=== PATIENT | female | born 1945 | race Caucasian/White ===

== ENCOUNTER 2017-07-15 11:05 | Day surgery (SDC) | payer OTHER ==
[~2017-07-15] VITALS: Ht 157.5 cm; Wt 84.5 kg
--- NOTE | ~2017-07-15 | OP ---
PATIENT NAME: KEISHA MORRISON MEDICAL RECORD: [id number] :49 LOCATION:[facility] ADMISSION DATE: SURGEON: SHERMAN ONEILL DO DATE OF OPERATION: 07/15/2017 PROCEDURE: EGD with biopsies. INDICATIONS FOR PROCEDURE: Heartburn, nausea, epigastric abdominal pain, altered bowel function. SCOPE: Olympus video gastroscope. MEDICATIONS: Propofol 150 mg IV per anesthesia. ESTIMATED BLOOD LOSS: Minimal. COMPLICATIONS: None. FINDINGS: Informed consent was given. The patient was made comfortable with the above medication. After reaching an adequate level of sedation by slow IV push, the patient was placed in left side. The endoscope was then advanced under direct visualization through the mouth to the second portion of the duodenum. The upper, middle, and lower thirds of the esophagus appeared normal. At the GE junction, there was very mild evidence of LA class A reflux induced esophagitis without ulcers or erosions. The endoscope was advanced beyond the GE junction into the stomach and retroflexed to view the cardia and fundus, which appeared normal. Throughout the body and antrum of the stomach, there was a slightly atrophic and nodular appearance. Multiple cold forceps biopsies were taken to submit for histopathology and to rule out H pylori. The endoscope was advanced beyond the pylorus into the duodenum where the bulb and second portion of the duodenum appeared normal. Based on the loose stools the patient has been experiencing, random biopsies were taken from the duodenum to submit for histology. The endoscope was then withdrawn from the patient. The patient tolerated the procedure well and there were no complications. IMPRESSION: 1. Very mild LA class A reflux-induced esophagitis. 2. Atrophic and nodular mucosa in the stomach with biopsies pending. PLAN AND RECOMMENDATIONS: 1. Discharge home when recovery parameters are met. 2. Followup biopsy specimen results. 3. Continue current diet and medications. 4. Further treatment and workup will be provided if indicated once the biopsies return. The appearance is within the esophagus and stomach and small bowel appear within normal limits in light of the fact that the patient's symptoms have improved and resolved. If the biopsies are normal, I would not recommend changing any medications or adding any medications at this time. TRANSINT:[id number] Voice Confirmation ID: [id number] DOCUMENT ID: [id number] OPERATIVE REPORT [id number] KEISHA MORRISON SHERMAN ONEILL DO at 0739 CC: [id number] DICTATION DATE: 07/15/17 1425 [employer] SUPERVISOR: 07/15/17 1448 [facility] 07/15/17 [id number] [place] [address]
[~2017-07-15 11:05] MED LIST: AMBIEN10 MG PO; ASPIRIN325 MG PO; ASPIRIN81 MG; ASPIRIN81 MG PO; ATENOLOL25 MG; BENICAR20 MG PO; BIOTIN5 MG PO; BRILINTA90 MG PO; CELEXA40 MG PO; CINNAMON500 MG PO; CYMBALTA30 MG PO; EFFIENT10 MG PO; FISH OIL 1,0001 CA1 PO; FISH OIL 1,2001 CA1 PO; GARLIC1 CAP PO; GEMFIBROZIL600 MG PO; GLUCOPHAGE500 MG PO; HYDROCHLOROTHIA25 MG PO; IMDUR30 MG PO; ISOSORBIDE MONO30 M1 PO; LASIX40 MG PO; LORCET 10/650 T1 TAB PO; NAPROSYN250 MG PO; NIASPAN500 MG PO; PLAVIX75 MG PO; PRAVACHOL20 MG PO; TENORETIC 50 TA1 TAB PO; TOPROL XL100 MG PO; TOPROL XL50 MG; WELCHOL625 MG PO; ZESTRIL40 MG PO; ZOCOR80 MG PO
[2017-07-15] MEDS ORDERED: ZYLOPRIM300 MG PO (12:23)
[2017-07-15] MEDS ORDERED: MOBIC7.5 MG PO (12:26)
[2017-07-15] MEDS ORDERED: RESTORIL15 MG PO (12:29)
[2017-07-15] MEDS ORDERED: MEGA RED (12:31)
[2017-07-15] MEDS ORDERED: OMEPRAZOLE20 M1 PO (12:32)
[2017-07-15] MEDS ORDERED: EFFEXOR75 MG PO (12:33)
[2017-07-15 12:40] VITALS: Ht 157.5 cm; Wt 84.5 kg
[2017-07-15 13:42] LABS: HEMOGLOBIN 12.2 g/dL (12-16); MCV 90.9 fL (80.0-100.0); MEAN PLATELET VOLUME 9.9 fL (7.4-10.4); RBC 4.07 10x6/uL (4.00-5.40); RDW 13.5 % (11.5-14.5); WBC 9.9 10x3/uL (4.8-10.8)
[2017-07-15 14:13] LABS: ANION GAP 12.9 mmol/L (8-16); CALCIUM 8.2 mg/dL (8.5-10.1); CARBON DIOXIDE 27.5 mmol/L (21.0-32.0); POTASSIUM - SERUM 3.4 mmol/L (3.5-5.1)
== END 2017-07-15 15:15 | disposition home or self-care (01) ==
LOC: D.OPS 11:05
PROVIDERS: Internal Medicine Gastroenterology
DX: R10.13 Epigastric pain (principal); R11.0 Nausea; K21.0 Gastro-esophageal reflux disease with esophagitis; R19.4 Change in bowel habit; E11.9 Type 2 diabetes mellitus without complications; I50.9 Heart failure, unspecified; I25.10 Atherosclerotic heart disease of native coronary artery without angina pectoris; Z01.812 Encounter for preprocedural laboratory examination

== ENCOUNTER → 2018-08-21 10:29 | Outpatient (CLI) | payer OTHER ==
[2017-07-15 12:40] VITALS: BMI 34.1
[~2018-08-21 10:29] MED LIST changes: +EFFEXOR75 MG PO; +MEGA RED; +MOBIC7.5 MG PO; +OMEPRAZOLE20 M1 PO; +RESTORIL15 MG PO; +ZYLOPRIM300 MG PO
== END | disposition home or self-care (01) ==
LOC: D.US 10:29
PROVIDERS: ATTEND Family Medicine
DX: I73.9 Peripheral vascular disease, unspecified (principal)

== ENCOUNTER → 2018-08-27 08:41 | Outpatient (CLI) | payer OTHER ==
[2017-07-15 12:40] VITALS: BMI 34.1
[2018-08-27 09:23] LABS: CREATININE - SERUM 1.3 mg/dL (0.6-1.3)
== END | disposition home or self-care (01) ==
LOC: D.CT 08:41
PROVIDERS: ATTEND Family Medicine
DX: I73.9 Peripheral vascular disease, unspecified (principal)

== ENCOUNTER 2018-09-12 06:17 | Outpatient (CLI) | payer OTHER ==
[~2018-09-12] VITALS: Ht 157.5 cm; Wt 80.9 kg
--- NOTE | ~2018-09-12 | HEMODYNAMI ---
PATIENT:KEISHA MORRISON MEDICAL RECORD: [id number] : 49 LOCATION:[facility] ADMISSION DATE: 09/12/18 Generatedon:09/12/20188:58 Patient name: KEISHA MORRISON Patient #: [id number] SSN: : 1945 Date of study: 09/12/2018 Page: Of Hemodynamic Procedure Report Patient Data Patient Demographics Procedure consent was obtained First Name: KEISHA Gender: Female Last Name: PRINCE : 1945 [facility] Initial: TROY Age: 73 year(s) Patient #: [id number] Race: Additional ID: [id number] Contact details [address]: [address] [place] [address] State: [place] City: [place] Zip code: [address] Past Medical History History of disease Date Diagnosis Comments CAD Valvular heart disease Allergies Allergen Reaction Date Comments Reported Other allergy 10/03/2015 PLAVIX, EFFIENT Other allergy 09/12/2018 EFFIENT, PLAVIX, JANUVIA Admission Admission Data Admission Date: 09/12/2018 Admission Time: 6:17 Admit Source: Other Insurance Payor: Private health insurance Height (in.): 62 BSA: 1.82 (m2) Height (cm.): 157.48 BMI: 32.66 (kg/m2) Weight (lbs.): 178.58 Weight (kg.): 81 Lab Results Lab Result Date: 09/12/2018 Lab Result Time: 0:00 Biochemistry Name Units Result Min Max BUN mg/dl 40 --(----)-* 7 18 Creatinine mg/dl 1.4 --(----)*- 0.6 1.3 CBC Name Units Result Min Max Hemoglobin g/dl 12.8 -*(----)-- 13.5 17.5 Procedure Procedure Types Cath Procedure Peripheral Cath Diagnostic Procedure Janitorial Services Supervisor Peripheral Procedures Fhcej-Taenfnx-Zyc-Off Peripheral vascular Intervention Stent Stent-Fem/Popw/plasty Procedure Description Procedure Date Procedure Date: 09/12/2018 Procedure Start Time: 8:33 Procedure End Time: 8:55 Procedure Staff Name Function Jeffery Juarez MD Performing Physician Geno Coker RT Monitor Ami Tracey RT Scrub Lambert Nj RN Nurse Zachary Vergara RN Box Blank Machine Operator Procedure Data Cath Procedure Fluoroscopy Diagnostic fluoroscopy Total fluoroscopy Time: 4.8 time: 4.8 min min Diagnostic fluoroscopy Total fluoroscopy dose: 220 dose: 220 mGy mGy Contrast Material Contrast Material Type Amount (ml) Isovue 300 63 Entry Location Entry Primary Successful Side Size Upsize Upsize Entry Closure Succes sful Closure Location (Fr) 1 (Fr) 2 (Fr) Remarks Device Remarks Femoral Right 5 Fr 6 Fr 6 Fr Exoseal artery Long Short Estimated blood loss: 5 ml Diagnostic catheters Device Type Used For End Catheter Placement DIAGNOSTIC UF 5Fr Multi-vessel catheter ([id number]) Angiography Procedure Complications No complications Procedure Medications Medication Administration Route Dosage 0.9% NaCl I.V. 100 ml/hr Oxygen etCO2 Nasal cannula 2 l/min Heparin Flush Bag added to field 2 bags (1000units/500ml NS) Lidocaine 2% added to field 20 Zofran I.V. 4 mg Versed I.V. 1 mg Fentanyl I.V. 50 mcg Versed I.V. 1 mg Fentanyl I.V. 50 mcg Versed I.V. 2 mg Fentanyl I.V. 50 mcg Heparin Bolus I.V. 4000 units Integrilin (Bolus I.V. 7.3 ml 2mg/ml) Integrilin (Bolus wasted 2.7 ml 2mg/ml) Fentanyl I.V. 50 mcg Brilinta P.O. 180 mg Fentanyl I.V. 50 mcg Hemodynamics Rest BSA: 1.82 (m2) HGB: 12.8 (g/dl) O2 Consumption: Estimated: 158.8 (ml/min) O2 Con sumption indexed: Estimated:87.25 (ml/min/m) Heart Rate: 58 (bpm) Snapshots Pre Cath Intra NCS Post Cath Vital Signs Time Heart Resp SPO2 etCO2 NIBP (mmHg) Rhythm Pain Sedation Rate (ipm) (%) (mmHg) Status Level (bpm) 8:18:27 56 11 98 32.1 195/71(140) NSR 0 (11) 10(A) , No pain 8:23:01 53 12 98 34.3 168/64(125) NSR 0 (11) 10(A) , No pain 8:27:34 55 11 98 35.8 179/66(133) NSR 0 (11) 10(A) , No pain 8:32:04 60 14 97 26.8 161/63(127) NSR 0 (11) 10(A) , No pain 8:36:26 56 15 94 14.9 162/70(134) NSR 0 (11) 9(A) , No pain 8:40:56 56 19 95 27.6 142/63(116) NSR 0 (11) 9(A) , No pain 8:45:23 58 10 97 31.3 136/58(106) NSR 0 (11) 9(A) , No pain 8:49:45 58 16 97 32.1 140/61(102) NSR 0 (11) 10(A) , No pain 8:55:04 60 17 98 28.3 174/71(145) NSR 0 (11) 10(A) , No pain Medications Time Medication Route Dose Verified Delivered Reason Notes Effectiveness by by 8:17:06 0.9% NaCl I.V. 100 Lambert Lambert Per physician ml/hr Clem Nj RN RN 8:17:15 Oxygen etCO2 2 Lambert Lambert for low 02 sats Nasal l/min Clem Nj cannula RN RN 8:17:25 Heparin Flush added 2 Lambert Lambert used for Bag to bags Clme Nj procedure (1000units/500ml field ZAMORA RN NS) 8:17:40 Lidocaine 2% added 20ml Lambert Lambert for local to vial Clem Nj anesthetic field ZAMORA RN 8:17:57 Zofran I.V. 4 mg Lambert Lambert for nausea Clem Nj RN RN 8:25:45 Versed I.V. 1 mg Lambert Lambert for sedation Clem Nj RN RN 8:25:53 Fentanyl I.V. 50 Lambert Lambert for sedation mcg Clem Nj RN RN 8:27:53 Versed I.V. 1 mg Lambert Lambert for sedation Clem Nj RN RN 8:27:59 Fentanyl I.V. 50 Lambert Lambert for sedation mcg Clem Nj RN RN 8:33:47 Versed I.V. 2 mg Lambert Lambert for sedation Clem Nj RN RN 8:33:53 Fentanyl I.V. 50 Lambert Lambert for sedation mcg Clem Nj RN RN 8:42:02 Heparin Bolus I.V. 4000 Lambert Lambert for units Clem Nj anticoagulation RN RN 8:42:19 Integrilin I.V. 7.3 Lambert Lambert for (Bolus 2mg/ml) ml Clem Nj antiplatelet RN RN therapy 8:42:36 Integrilin wasted 2.7ml Lambert Lambert to sharp's (Bolus 2mg/ml) Clem Nj RN RN 8:44:38 Fentanyl I.V. 50 Lambert Lmabert for sedation mcg Clem Nj RN RN 8:54:08 Brilinta P.O. 180 Lambert Lambert for mg Clem Nj antiplatelet RN RN therapy 8:57:18 Fentanyl I.V. 50 Lambert Lambert for sedation mcg Clem Nj RN supervisor silvering department Log Time Note 7:49:42 Signed procedure consent form obtained from patient. 7:49:43 Diagnostic Cath status Elective 7:49:44 Time tracking: Regular hours (M-F 7:00 - 5:00) 7:49:48 Plan of Care:Hemodynamics will remain stable., Cardiac rhythm will remain stable., Comfort level will be maintained., Respiratory function will remain adequate., Patient/ family verbilizes understanding of procedure., Procedure tolerated without complication., Recovers from procedure without complications.. 7:49:58 H&P Date Dictated: 09/11/2018 Within 30 days and on chart., H&P Addendum completed by physician on day of procedure. (MUST COMPLETE FOR ALL OUTPATIENTS). 7:52:41 Patient allergic to Other allergyEFFIENT, PLAVIX, JANUVIA 7:55:29 Patient Weight : 178.58 lbs 7:57:45 Zachary Vergara RN sent for patient. Start room use. 8:05:27 Patient received from Pre/Post Procedure Room to CCL 2 Alert and oriented. Tansferred to table in Supine position. 8:05:30 Warm blankets applied, and pauline hugger turned on for patient comfort. 8:05:30 Correct patient and procedure confirmed by team. 8:05:31 ECG and BP/O2 sat monitors applied to patient. 8:15:54 Vital chart was started 8:15:55 Baseline sample Acquired. 8:16:00 Rhythm: sinus rhythm 8:16:02 Full Disclosure recording started 8:16:04 Pre-procedure instructions explained to patient. 8:16:04 Pre-op teaching completed and patient verbalized understanding. 8:16:05 Family in waiting room. 8:16:07 Patient NPO since Midnight. 8:16:09 Is the patient allergic to Iodine/contrast media? No. 8:16:10 Was the patient premedicated? No 8:16:18 Is patient on blood thinner?Yes 8:16:21 ACC The patient was administered the following blood thiners within the last 24 hours: ACCAspirin 8:16:23 Patient diabetic? No. 8:16:25 Previous problem with sedation/anesthesia? No ? 8:16:27 Snore? Yes 8:16:29 Sleep apnea? No 8:16:30 Deviated septum? No 8:16:34 Opens mouth fully? Yes 8:16:35 Sticks out tongue? Yes 8:16:37 Airway obstruction? No ? 8:16:43 Dentures? Yes lower in tight 8:17:06 0.9% NaCl 100 ml/hr I.V. was administered by Lambert Nj RN; Per physician; 8:17:15 Oxygen 2 l/min etCO2 Nasal cannula was administered by Lambert Nj RN; for low 02 sats; 8:17:25 Heparin Flush Bag (1000units/500ml NS) 2 bags added to field was administered by Lambert Nj RN; used for procedure; 8:17:40 Lidocaine 2% 20ml vial added to field was administered by Lambert Nj RN; for local anesthetic; 8:17:42 Pre procedure: left dorsailis pedis pulse 1+ Palpable, but thready & weak; easily obliterated 8:17:45 Pre procedure: right dorsailis pedis pulse Doppler 8:17:49 Patient pain scale 0/10 ?. 8:17:57 Zofran 4 mg I.V. was administered by Lambert Nj RN; for nausea; 8:18:09 IV patent on arrival in left forearm with 0.9% NaCl at [facility]. 8:18:35 Lab results completed and on chart. 8:18:45 Bilateral groins area was prepped with chlora-prep and draped in sterile fashion 8:: Lab Result : BUN 40 mg/dl 8:: Lab Result : Creatinine 1.4 mg/dl 8:: Lab Result : Hemoglobin 12.8 g/dl 8::48 Patient Height : 62 inches 8:20:48 Admit Source: Other 8::53 Insurance Payor : Private health insurance 8:21:13 Alarms reviewed by R. N. 8:: Sharps counted by scrub and verified by R.N. 8::48 Zero performed for pressure channel P1 8::44 Physician arrived 8::44 --------ALL STOP TIME OUT------ 8::45 Final Timeout: patient, procedure, and site verified with staff and physician. All members of the team are in agreement. 8:24:47 Bilateral groins site verified by team. 8::51 Maximum allowable Isovue 300 dose 300ml. Physician notified. (300ml for normal creatinines. For patients with creatinine of 1.7 or higher multiply weight(kg) x 5 divided by creatinine.) 8:24:55 Fire Safety Assessment: A--An alcohol-based skin anteseptic being used preoperatively., C--Open oxygen or nitrous oxide is being used., D--An ESU, laser, or fiber-optic light is being used. 8:24:59 Physical assessment completed. ASA score P 2 - A patient with mild systemic disease as per Jeffery Juarez MD. 8:25:02 Sedation plan: IV Moderate Sedation Medication:Versed, Fentanyl 8::45 Versed 1 mg I.V. was administered by Lambert Nj RN; for sedation; 8::53 Fentanyl 50 mcg I.V. was administered by Lambert Nj RN; for sedation; 8::53 Versed 1 mg I.V. was administered by Lambert Nj RN; for sedation; 8::59 Fentanyl 50 mcg I.V. was administered by Lambert Nj RN; for sedation; 8:32:24 Procedure started. 8:33:42 Local anesthetic to right femoral artery with Lidocaine 2% by Jeffery Juarez MD.INITIAL ACCESS ONLY 8:33:47 Versed 2 mg I.V. was administered by Lambert Nj RN; for sedation; 8:33:53 Fentanyl 50 mcg I.V. was administered by Lambert Nj RN; for sedation; 8:34:21 A 5 Fr sheath was inserted into the Right Femoral artery 8:35:12 A DIAGNOSTIC UF 5Fr catheter ([id number]) was advanced over the wire and used for Multi-vessel Angiography. 8:38:42 GLIDE WIRE Super Stiff Angled 260cm ([id number]) opened to sterile field. 8:38:43 SHEATH 6FR Sweet[place] ([id number]) opened to sterile field. 8:38:56 INFLATOR Merit BasixCompak (QN0562) opened to sterile field. 8:39:25 Abdominal angiogram w/ runoff was performed. 8:39:26 SHEATH 6FR Destination (RSR01) opened to sterile field. 8:39:34 Sheath upsized to a 6 Fr Long. 8:40:01 glide wire advanced. 8:42:02 Heparin Bolus 4000 units I.V. was administered by Lambert Nj RN; for anticoagulation; 8:42:19 Integrilin (Bolus 2mg/ml) 7.3 ml I.V. was administered by Lambert Nj RN; for antiplatelet therapy; 8:42:36 Integrilin (Bolus 2mg/ml) 2.7ml wasted was administered by Lambert Nj RN; to sharp's; 8:42:43 Inflate balloon Inflation number: 1 A POWERFLEX PRO 6.0 x 100 x 135cm balloon ([id number]) was prepped and advanced across the Mid Superficial Femoral, Left, then inflated to 13 ELKIN for 0:10 (min:sec). 8:42:56 Inflation number: 2 The POWERFLEX PRO 6.0 x 100 x 135cm balloon ([id number]) was reinflated across the Mid Superficial Femoral, Left, to 13 ELKIN for 0:10 (min:sec). 8:43:04 Inflation number: 3 The POWERFLEX PRO 6.0 x 100 x 135cm balloon ([id number]) was reinflated across the Mid Superficial Femoral, Left, to 13 ELKIN for 0:10 (min:sec). 8:43:28 Balloon removed over the wire. 8:44:38 Fentanyl 50 mcg I.V. was administered by Lambert Nj RN; for sedation; 8:46:57 Inflate balloon Inflation number: 4 A STELLAREX 6 x 120 x 135 DE Balloon ([id number]) was prepped and advanced across the Mid Superficial Femoral, Left, then inflated to 13 ELKIN for 2:00 (min:sec). 8:47:00 Timer 1 started at 8:44 AM, stopped at 8:47 AM, duration 00:02:08 sec. 8:49:42 Inflation number: 5 The STELLAREX 6 x 120 x 135 DE Balloon ([id number]) was reinflated across the Mid Superficial Femoral, Left, to 13 ELKIN for 2:00 (min:sec). 8:49:50 Timer 1 started at 8:47 AM, stopped at 8:49 AM, duration 00:02:14 sec. 8:50:28 Stent catheter was removed intact over wire. 8:52:11 SMART 7 X 40 X 120 stent ([id number]) was deployed across Mid Superficial Femoral, Left . 8:53:32 Stent catheter was removed intact over wire. 8:53:44 Sheath upsized to a 6 Fr Short. 8:54:00 EXOSEAL 6Fr (EX600) opened to sterile field. 8:54:08 Brilinta 180 mg P.O. was administered by Lambert Nj RN; for antiplatelet therapy; 8:54:16 Sheath removed intact; hemostasis achieved with Exoseal to the Right Femoral artery. 8:54:18 Procedure ended.(Physican Out) 8:54:30 Fluoroscopy time 04.80 minutes. 8:54:34 Flurop Dose total: 220 8:54:34 Fluoroscopy dose: 220 mGy 8:54:46 Contrast amount:Isovue 300 63ml. 8:54:48 Sharps counted by scrub and verified by R.N. 8:54:49 Insertion/operative site no bleeding no hematoma. 8:54:52 Post-op/insertion site Right Femoral artery dressed using a 4 x 4 and Tegaderm. 8:54:56 Post procedure rhythm: unchanged. 8:54:59 Estimated blood loss: 5 ml 8:55:00 Post procedure instruction explained to patient.Patient verbalizes understanding. 8:55:00 Patient needs reinforcement of post procedure teaching. 8:55:16 Procedure type changed to Cath procedure, Peripheral Cath Diagnostic Procedure, Janitorial Services Supervisor Peripheral Procedures, Oftee-Ewysuxc-Xtw-Off, Peripheral vascular Intervention, Stent, Stent-Fem/Popw/plasty 8:55:17 Procedure and supply charges have been captured, reviewed, submitted and are correct. 8:55:21 Procedure Complication : No complications 8:55:23 Vital chart was stopped 8:55:24 See physician's report for complete and final results. 8:55:35 Report given to Pre/Post Procedure Room. 8:55:38 Patient transfered to Pre/Post Procedure Room with Stretcher. 8:55:40 Procedure ended. 8:55:40 Full Disclosure recording stopped 8:55:47 ACC-PCI Only Patient was given prescriptions, or instructed by Jeffery Juarez MD to start/continue the following medications upon discharge: Brilinta 8:55:48 End room use (Document Last) 8:57:18 Fentanyl 50 mcg I.V. was administered by Lambert Nj RN; for sedation; 8:57:49 Use device set CATH PACK 8:57:52 ACIST Syringe (43853) opened to sterile field. 8:57:52 ACIST Hand Control (50003) opened to sterile field. 8:57:53 ACIST Manifold (53954) opened to sterile field. 8:57:53 Medline Cath Pack ([id number]) opened to sterile field. 8:57:55 Bag Decanter (2002S) opened to sterile field. 8:57:56 DIAGNOSTIC WIRE .035 260cm J wire (474456) opened to sterile field. 8:58:04 SHEATH 5FR Sweet[place] (QVE584) opened to sterile field. Intervention Summary Intervention Notes Time ActionType Lesion and Equipment Used Action# Pressure Duration Attributes 8:42:43 Inflate Mid POWERFLEX PRO 6.0 1 13 00:10 balloon Superficial x 100 x 135cm Femoral, balloon Left ([id number]) 8:42:56 Reinflate Mid POWERFLEX PRO 6.0 2 13 00:10 balloon Superficial x 100 x 135cm Femoral, balloon Left ([id number]) 8:43:04 Reinflate Mid POWERFLEX PRO 6.0 3 13 00:10 balloon Superficial x 100 x 135cm Femoral, balloon Left ([id number]) 8:46:57 Inflate Mid STELLAREX 6 x 120 4 13 02:00 balloon Superficial x 135 DE Balloon Femoral, ([id number]) Left 8:49:42 Reinflate Mid STELLAREX 6 x 120 5 13 02:00 balloon Superficial x 135 DE Balloon Femoral, ([id number]) Left 8:52:11 Deploy self Mid SMART 7 X 40 X 1 expanding Superficial 120 stent stent Femoral, ([id number]) Left Device Usage Item Name Manufacture Quantity Catalog Number Hospital Part Curr ent Minimal Lot# / Charge Number Stock Stock Serial# Code DIAGNOSTIC UF 5Fr Cardinal 1 [id number] 7613 00 10 catheter Health ([id number]) GLIDE WIRE Super Terumo 1 [id number] 735589 938616 2235 57 5 Stiff Angled 260cm ([id number]) SHEATH 6FR Terumo 1 [id number] 212255 633841 5897 64 40 [place] (PBR203) INFLATOR Merit Merit 1 HT9785 622006 756969 8915 28 15 [facility] (SS1947) POWERFLEX PRO 6.0 Cardinal 1 [id number] 479467 3823 79 5 x 100 x 135cm Health balloon ([id number]) STELLAREX 6 x 120 Suresh 1 [id number] 459480 1763886 6568 97 5 [id number] x 135 DE Balloon Healthcare ([id number]) (273517) SHEATH 6FR Terumo 1 RSR01 940363 62275 9996 52 5 Destination (RSR01) SMART 7 X 40 X Cardinal 1 [id number] 997972 406547 1467 73 0 [id number] 120 stent Health ([id number]) EXOSEAL 6Fr Cardinal 1 EX600 714985 395886 3734 96 10 (EX600) Health ACIST Syringe Acist 1 72384 412352 031311 3936 65 20 (41899) [employer] Inc ACIST Hand Acist 1 84443 191089 325131 4308 90 5 Control (32669) [employer] ACIST Manifold Acist 1 38569 833184 034254 9828 07 5 (44628) [employer] Systems [employer] Medline Cath Pack Medline 1 [id number] 670284 94546 9888 86 5 ([id number]) Bag Decanter Microtek 1 095255 42921 9871 95 5 () Medical Inc. DIAGNOSTIC WIRE St Messi 1 899504 007370 100274 1936 85 30 .035 260cm J wire (009964) SHEATH 5FR Terumo 1 [id number] 472745 695987 1849 50 5 Sweetwater (PBF058) Signature Audit [place] Stage Time Signature Unsigned Intra-Procedure 09/12/2018 Geno Coker 8:58:48 AM RT(R) Signatures Monitor : Geno Coker RT Signature : Date : Time : [facility] [address] [facility] [address]
--- NOTE | ~2018-09-12 | OP ---
PATIENT NAME: KEISHA MORRISON MEDICAL RECORD: [id number] :49 LOCATION:D.CAT ADMISSION DATE: SURGEON: EVELIA BURGER MD DATE OF OPERATION: 09/12/2018 DATE OF SERVICE: 09/12/2018 PROCEDURES: 1. Stent placement SFA, left. 2. TEXTILE CONVERSION MANAGER SFA, left. 3. Drug-eluting balloon, SFA, left. 4. Aortofemoral runoff. 5. Abdominal aortography. INDICATION: Claudication and peripheral vascular disease. PROCEDURE IN DETAIL: After informed consent was obtained and after a detailed description of the risks, benefits as well as alternative therapies, the patient elected to proceed with angiogram and angioplasty. The right femoral area was prepped and draped in normal sterile fashion. Right femoral artery was cannulated via modified Seldinger technique with placement of a 6-[place] [id number] sheath. All catheters exchanged through this sheath. FINDINGS: Abdominal aortography was performed. The catheter was pulled down for aortofemoral runoff. Abdominal aortography reveals no significant abdominal aortic disease, no dissection or aneurysmal formation. RIGHT LEG: A. Iliac: The common internal and external iliacs have moderate irregularities, but no flow-limiting stenosis. B. Femoral system: The common and deep femoral are widely patent. 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 This is unchanged from a 2015 film. The distal superficial femoral reconstitutes off of collaterals from the deep system. The distal superficial femoral was patent. C. Popliteal and infrapopliteal vessels are patent. There is 3-vessel runoff to the foot. LEFT LEG: A. Iliac: The common internal and external iliacs have moderate irregularities, but no flow-limiting stenosis. B. Femoral system: The common and deep femoral are widely patent. Superficial femoral has at least 90% stenosis in the proximal vessel. There are previously placed stents. There is at least 80% in-stent restenosis as well. The remainder of the superficial femoral is patent. C. Popliteal and infrapopliteal vessels are as well patent. TEXTILE CONVERSION MANAGER STENT OF THE LEFT SFA: We ballooned this with a 6.0 drug-eluting Stellarex balloon. There was interval dissection between the stents. This was stented with a 7 x 40 SMART stent. Result was 0% residual stenosis. OVERALL IMPRESSION: Successful percutaneous transluminal angioplasty stent and drug-eluting balloon percutaneous transluminal angioplasty of the left superficial femoral artery going from 90% initial stenosis to 0% residual. TRANSINT:[id number] Voice Confirmation ID: [id number] DOCUMENT ID: [id number] OPERATIVE REPORT [id number] KEISHA MORRISON JEFFREY MD CC: [id number] DICTATION DATE: 09/12/18900 CARTOONIST SPECIAL EFFECTS: 09/12/[address] [facility] [address] [id number]
[2018-09-12] MEDS ORDERED: GLIMEPIRIDE2 MG PO (06:35)
[2018-09-12] MEDS ORDERED: BAYER ASPIRIN325 MG PO (06:37)
[2018-09-12 06:51] VITALS: BP 211/73; Ht 157.5 cm; Wt 80.9 kg
[2018-09-12 07:04] LABS: BASOPHILS 0.3 % (0-2); EOSINOPHILS 2.5 % (0-7); HEMATOCRIT 37.6 % (36.0-48.0); HEMOGLOBIN 12.8 g/dL (12-16); IMMATURE GRANULOCYTES 0.1 % (0-5); LYMPHOCYTES 19.5 % (15-50); MCH 30.9 pg (26.0-34.0); MCV 90.8 fL (80.0-100.0); MEAN PLATELET VOLUME 10.2 fL (7.4-10.4); MONOCYTES 5.4 % (2-11); NEUTROPHILS 72.2 % (40-80); PLATELET COUNT 209 10x3/uL (130-400); RBC 4.14 10x6/uL (4.00-5.40); RDW 14.4 % (11.5-14.5); WBC 8.7 10x3/uL (4.8-10.8)
[2018-09-12 07:13] LABS: ANION GAP 12.8 mmol/L (8-16); CALCIUM 9.1 mg/dL (8.5-10.1); CARBON DIOXIDE 28.8 mmol/L (21.0-32.0); CREATININE - SERUM 1.4 mg/dL (0.6-1.3); POTASSIUM - SERUM 4.6 mmol/L (3.5-5.1)
[2018-09-12] MEDS ORDERED: BRILINTA90 MG PO (09:16)
--- NOTE | 2018-09-12 09:25 | NUR ---
PT ALERT, DENIES ANY C/O. HOLDEN PO FLUIDS WITH NO C/O NAUSEA. 6 FR EXOSEAL IS CDI TO RIGHT GROIN, AREA IS SOFT AND NONTENDER. PEDAL PULSES PALPABLE BILAT. HOB IS FLAT, CALL LIGHT IN REACH. VSS. DAUGHTER AT BEDSIDE.
--- NOTE | 2018-09-12 09:42 | NUR ---
DRESSING CDI, PEDAL PULSES PALPABLE, VSS, HOB IS FLAT, DAUGHTER AT BEDSIDE.
--- NOTE | 2018-09-12 09:59 | NUR ---
PT SLEEPING INTERMITTENTLY, DENIES ANY C/O. DRESSING IS CDI TO RIGHT GROIN, AREA IS SOFT WITH NO HEMATOMA NOTED. HOB IS FLAT, DAUGHTER AT BEDSIDE. SINUS SEVERINO AT 52. RESP WITH EASE ON O2 AT 2LPM VIA NC. PEDAL PULSES PALPABLE.
--- NOTE | 2018-09-12 10:17 | NUR ---
DRESSING CDI, AREA IS SOFT WITH NO HEMATOMA NOTED. PEDAL PULSES PALPABLE. HOB IS FLAT, PT IS ALERT AND DENIES ANY C/O. DAUGHTER AT BEDSIDE, CALL LIGHT IN REACH.
--- NOTE | 2018-09-12 10:36 | NUR ---
ASSITED PT ONTO BEDPAN X 2 NURSES, PT VOIDED QS. DENIES ANY C/O. SINUS SEVERINO AT 46, DENIES ANY C/O CHEST PAIN. PEDAL PULSES PALPABLE. HOB IS FLAT, DAUGHTER AT BEDSIDE.
--- NOTE | 2018-09-12 10:48 | NUR ---
6 FR EXOSEAL IS CDI TO RIGHT GROIN, AREA IS SOFT WITH NO HEMATOMA NOTED. PEDAL PULSES PALPABLE. HOB IS FLAT, CALL LIGHT IN REACH. SINUS SEVERINO AT 49, DENIES ANY C/O CHEST PAIN. HOLDEN PO FLUIDS WITH NO C/O NAUSEA. DR BURGER HAS ROUNDED ON PT.
--- NOTE | 2018-09-12 11:30 | NUR ---
DRESSING CDI TO RIGHT GROIN, AREA IS SOFT AND NONTENDER. HOB IS FLAT, DENIES ANY C/O. PEDAL PULSES PALPABLE.
--- NOTE | 2018-09-12 12:22 | NUR ---
6 FR EXOSEAL R/GROIN IS CDI AND PATIENT VERBALIZED NO [facility] UP 30 FOR COMFORT SANDWICH AND SODA TO BEDSIDE
--- NOTE | 2018-09-12 12:50 | NUR ---
HOB IS FULLY ELEVATED. DRESSING CDI TO RIGHT GROIN, PEDAL PULSES PALPABLE. PT HOLDEN SANDWICH WITH NO C/O NAUSEA. BP ELEVATED AT 214/56, SINUS SEVERINO AT 48. DENIES ANY C/O CHEST PAIN. BP ON ADMISSION TODAY WAS 211/73. INTERVENTION MANAGER NOTIFIED, AWAITING ORDERS FROM DR BURGER.
--- NOTE | 2018-09-12 12:55 | NUR ---
ORDER RECEIVED FOR CLONIDINE 0.2MG PO X1.
--- NOTE | 2018-09-12 13:04 | NUR ---
PT HAS HOLDEN SANDWICH WITH NO C/O. SITTING UP IN BED VISITING WTIH GRANDDAUGHTER. DRESSING REMAINS CDI TO RIGHT GROIN, AREA IS SOFT WITH NO HEMATOMA NOTED. PEDAL PULSES PALPABLE. PT HAS RECEIVED CLONIDINE 0.2MG PO PER ORDERS.
--- NOTE | 2018-09-12 14:11 | NUR ---
1346 BP DOWN TO 178/52, PT IS ALERT AND DENIES ANY C/O. DRESSING TO RIGHT GROIN IS CDI, AREA IS SOFT AND NONTENDER. PEDAL PULSES PALPABLE PT DENIES NEEDS AT THIS TIME. DAUGHTER AT BEDSIDE. DC INSTRUCTIONS HAVE BEEN REVIEWED WITH PT AND DAUGHTER WHO VERBALIZE UNDERSTANDING. PT HAS BRILINTA SAMPLES FROM THE OFFICE AND VERBALIZES UNDERSTANDING TO START THIS MEDICATION TOMORROW. BRILINTA MEDCOUNSELOR SHEET TO PATIENT. IV DC'D WITH CATH INACT AND PT IS DRESSING FOR DC.
--- NOTE | 2018-09-12 14:14 | NUR ---
1400 PT ESCORTED TO THE BATHROOM VIA WC AND VOIDED QS. IS ALERT AND DENIES ANY C/O. PT ESCORTED TO PRIVATE AUTO VIA WC BY NURSE WITH DAUGHTER DRIVING HER HOME. PT IS ALERT AND DENIES ANY C/O UPON DC.
== END 2018-09-12 14:00 | disposition home or self-care (01) ==
LOC: D.CATH 06:17
PROVIDERS: ATTEND Internal Medicine Interventional Cardiology
DX: I70.213 Atherosclerosis of native arteries of extremities with intermittent claudication, bilateral legs (principal); I70.92 Chronic total occlusion of artery of the extremities

== ENCOUNTER 2019-05-22 07:07 | Outpatient (CLI) | payer OTHER ==
[~2019-05-22] VITALS: Ht 157.5 cm; Wt 77.3 kg
--- NOTE | ~2019-05-22 | OP ---
PATIENT NAME: KEISHA MORRISON MEDICAL RECORD: [id number] :49 LOCATION:D.CAT ADMISSION DATE: SURGEON: EVELIA BURGER MD DATE OF OPERATION: 05/22/2019 PROCEDURES: 1. PTCA stent LAD diagonal. 2. Percutaneous transluminal coronary angioplasty stent right coronary artery. 3. IFR. 4. Left heart catheterization. 5. Selective coronary angiography. 6. Vein graft angiography. 7. SHANNON angiography. 8. Left ventriculogram. INDICATION: Unstable angina and coronary artery disease. PROCEDURE IN DETAIL: After informed consent was obtained and after a detailed description of risks, benefits as well as alternative therapies, the patient elected to proceed with angiogram and angioplasty. The right femoral area was prepped and draped in normal sterile fashion. Right femoral artery was cannulated via modified Seldinger technique with placement of 6-[place] sheath. All catheters exchanged through this sheath. FINDINGS: The left ventriculogram was performed in standard 30-degree [place] view, reveals good cardiac wall motion, ejection fraction estimated at 70%. SELECTIVE CORONARY ANGIOGRAPHY: 1. Left main is with no significant angiographic disease. 2. Left anterior descending has previously placed stents that are widely patent. There is 80% stenosis in the mid vessel. 3. SHANNON to the distal LAD is widely patent. 4. The LAD diagonal has 95% stenosis at the ostium. 5. Vein graft to the diagonal was closed. 6. Left circumflex has previously placed stents, these are widely patent with no significant restenosis. No disease elsewise throughout the circumflex or its branches. 7. The right coronary has previously placed stents, these are patent; however, there is a new 80% stenosis after the previously placed stents. IFR was abnormal at 0.77. PTCA STENT OF THE RCA: The stent used was a 2.5 x 12 mm [place]. Result was 0% residual stenosis. PTCA STENT OF THE LAD Diagonal: The stent used was a 2.5 x 8 mm [place]. Result was 0% residual stenosis. OVERALL IMPRESSION: Successful percutaneous transluminal coronary angioplasty stent of the left anterior descending diagonal and RCA, both going from 80% to 95% initial stenosis to 0% residual. TRANSINT:[id number] Voice Confirmation ID: [id number] DOCUMENT ID: [id number] OPERATIVE REPORT [id number] KEISHA MORRISON EVELIA BURGER MD CC: [id number] DICTATION DATE: 05/22/19 1104 SENSORY SCIENTIST: 05/22/192034 DEP CLI 05/22/19 [facility] [address] [place] [address]
--- NOTE | ~2019-05-22 | HEMODYNAMI ---
PATIENT:KEISHA MORRISON MEDICAL RECORD: [id number] : 49 LOCATION:[facility] ADMISSION DATE: 05/22/19 Generatedon:05/22/201911:04 Patient name: KEISHA MORRISON Patient #: [id number] : 1945 Date of study: 05/22/2019 Page: Of Hemodynamic Procedure Report Patient Data Patient Demographics Procedure consent was obtained First Name: KEISHA Gender: Female Last Name: PRINCE : 1945 [facility] Initial: TROY Age: 73 year(s) Patient #: [id number] Race: SSN: [id number] Additional ID: [id number] Contact details [address]: [address] [place] [address] State: [place] City: [place] Zip code: [address] Past Medical History History of disease Date Diagnosis Comments CAD Valvular heart disease Allergies Allergen Reaction Date Comments Reported Other allergy 10/03/2015 PLAVIX, EFFIENT Other allergy 09/12/2018 EFFIENT, PLAVIX, JANUVIA Admission Admission Data Admission Date: 05/22/2019 Admission Time: 7:07 Arrival Date: 05/22/2019 Arrival Time: 7:07 Admit Source: Other Insurance Payor: Private health insurance [facility] #: [id number] Height (in.): 62.2 BSA: 1.79 (m2) Height (cm.): 158 BMI: 30.84 (kg/m2) Weight (lbs.): 169.76 Weight (kg.): 77 Lab Results Lab Result Date: 05/22/2019 Lab Result Time: 0:00 Biochemistry Name Units Result Min Max BUN mg/dl 28 --(----)-* 7 18 Creatinine mg/dl 1.3 --(---*)-- 0.6 1.3 eGFR ml/min 43 *-(----)-- 90 120 NONAFRICAN CBC Name Units Result Min Max Hemoglobin g/dl 12.3 *-(----)-- 13.5 17.5 Procedure Procedure Types Cath Procedure Diagnostic Procedure LHC LH w/Coronaries w/Grafts FFR/IVUS FFR Initial Sedation Charges Moderate Sedation up to 30 minutes PCI Procedure Coronary Stent Coronary Stent Initial x2 Procedure Description Procedure Date Procedure Date: 05/22/2019 Procedure Start Time: 10:31 Procedure End Time: 11:00 Procedure Staff Name Function Jeffery Juarez MD Performing Physician Geno Coker RT Monitor Tresa Wayne RT Scrub Gali Salamanca RN Nurse Procedure Data Cath Procedure Fluoroscopy Diagnostic fluoroscopy Total fluoroscopy Time: 7.2 time: 7.2 min min Diagnostic fluoroscopy Total fluoroscopy dose: dose: 1145 mGy 1145 mGy Contrast Material Contrast Material Type Amount (ml) Isovue 300 148 Entry Location Entry Primary Successful Side Size Upsize Upsize Entry Closure Succes sful Closure Location (Fr) 1 (Fr) 2 (Fr) Remarks Device Remarks Femoral Right 5 Fr 6 Fr Exoseal artery Short Estimated blood loss: 5 ml Diagnostic catheters Device Type Used For End Catheter Placement MULTIPACK Pigtail 5 Fr LV Angiography catheter MULTIPACK JL 4.0 5Fr Left Coronary catheter Angiography MULTIPACK 3DRC 5Fr Multi-vessel catheter Angiography DIAGNOSTIC AR2 MOD 5 Fr SVG Angiography catheter ([id number]) Procedure Complications No complications Procedure Medications Medication Administration Route Dosage 0.9% NaCl I.V. 100 ml/hr Oxygen etCO2 Nasal cannula 2 l/min Lidocaine 2% added to field 20 Heparin Flush Bag added to field 2 bags (1000units/500ml NS) Versed I.V. 2 mg Fentanyl I.V. 50 mcg Fentanyl I.V. 50 mcg Versed I.V. 2 mg Heparin Bolus I.V. 4000 units Integrilin (Bolus I.V. 6.8 ml 2mg/ml) Integrilin (Bolus wasted 3.2 ml 2mg/ml) Brilinta P.O. 180 mg Hemodynamics Rest BSA: 1.79 (m2) HGB: 12.3 (g/dl) O2 Consumption: Estimated: 165.41 (ml/min) O2 Co nsumption indexed: Estimated:92.41 (ml/min/m) Heart Rate: 71 (bpm) Pressure Samples Time Site Value (mmHg) Purpose Heart Use Rate(bpm) 10:36 LV 22/14,20 Snapshot 98 Snapshots Pre Cath Intra NCS Post Cath Vital Signs Time Heart Resp SPO2 etCO2 NIBP (mmHg) Rhythm Pain Sedation Rate (ipm) (%) (mmHg) Status Level (bpm) 10:23:18 72 11 100 34 183/76(112) NSR 0 (11) 10(A) , No pain 10:27:45 66 10 100 35.5 191/67(120) NSR 0 (11) 10(A) , No pain 10:32:15 82 16 98 27.9 168/65(112) NSR 0 (11) 10(A) , No pain 10:36:35 85 10 97 29.4 136/69(121) NSR 0 (11) 9(A) , No pain 10:41:34 86 10 98 37.7 Measuring NSR 0 (11) 9(A) , No pain 10:41:49 86 11 98 36.9 175/71(122) NSR 0 (11) 9(A) , No pain 10:46:11 73 11 98 37.7 163/71(119) NSR 0 (11) 9(A) , No pain 10:50:33 76 11 98 35.4 157/59(95) NSR 0 (11) 9(A) , No pain 10:54:51 74 11 98 30.9 154/63(105) NSR 0 (11) 9(A) , No pain 10:59:50 86 11 99 30.9 Measuring NSR 0 (11) 9(A) , No pain 11:00:16 68 9 99 30.2 168/69(111) NSR 0 (11) 9(A) , No pain Medications Time Medication Route Dose Verified Delivered Reason Notes Effectiveness by by 10:22:20 0.9% NaCl I.V. 100 Jeffery Gali used for ml/hr Larry Salamanca veterinary livestock inspector 10:22:27 Oxygen etCO2 2 Jeffery Gali used for Nasal l/min Larry Salaamnca procedure cannula RN 10:22:31 Lidocaine 2% added 20ml Jeffery Gil for local to vial Larry Juarez MD anesthetic field 10:22:38 Heparin Flush added 2 Jefferymingo Gil used for Bag to bags Larry Juarez MD procedure (1000units/500ml field NS) 10:26:38 Versed I.V. 2 mg Jeffery Gali for sedation Larry Salamanca RN 10:26:42 Fentanyl I.V. 50 Jeffery Gali for sedation mcg Larry Salamanca RN 10:31:00 Versed I.V. 2 mg Jeffery Cruzyla for sedation Larry Salamanca RN 10:31:36 Fentanyl I.V. 50 Jeffery Cruzyla for sedation mcg Larry Salamanca RN 10:47:19 Heparin Bolus I.V. 4000 Jeffery Tomasa for verif ied units aLrry Salamanca anticoagulation with Dr. NOAH Juarez 10:47:32 Integrilin I.V. 6.8 Jeffery Cruzyla for (Bolus 2mg/ml) ml Larry Salamanca antiplatelet RN therapy 10:47:43 Integrilin wasted 3.2 Jeffery Cruzyla for (Bolus 2mg/ml) ml Larry Salamanca antiplatelet RN therapy 10:47:54 Brilinta P.O. 180 Jeffery Tomasa for mg Larry Salamanca antiplatelet RN therapy Procedure Log Time Note 9:35:57 Informed consent obtained and on chart 9:37:42 Admit Source: Other 9:37:48 Arrival Date: 05/22/2019 7:07:00 AM 9:38:07 Insurance Payor : Private health insurance 9:39:30 Patient Height : 62.2 inches 9:39:40 Patient Weight : 169.76 lbs 9:40:08 Lab Result : Hemoglobin 12.3 g/dl 9:40:08 Lab Result : eGFR NONAFRICAN 43 ml/min 9:40:08 Lab Result : BUN 28 mg/dl 9:40:08 Lab Result : Creatinine 1.3 mg/dl 9:40:47 Diagnostic Cath Status : Elective 9:41:19 Procedure Status Elective Heart Cath (OP). 9:41:21 Gali Salamanca RN sent for patient. Start room use. 9:41:22 Time tracking: Regular hours (M-F 7:00 - 5:00) 9:41:26 Plan of Care:Hemodynamics will remain stable., Cardiac rhythm will remain stable., Comfort level will be maintained., Respiratory function will remain adequate., Patient/ family verbilizes understanding of procedure., Procedure tolerated without complication., Recovers from procedure without complications.. 9:43:50 Risk of Mortality: <0.1 9:43:53 Risk of blood transfusion: 1.2 9:43:58 Risk of BOSSMAN: 1.1 9:44:46 Maximum allowable contrast dose (3.7 X eGFR X 0.75)119 ml. 9:44:50 2) 60-89 Mildly reduced kidney function, and other findings (as for stage 1) point to kidney disease. 10:16:10 Patient received from Pre/Post Procedure Room to [facility] 2 Alert and oriented. Tansferred to table in Supine position. 10:16:15 Warm blankets applied, and pauline hugger turned on for patient comfort. 10:16:15 Correct patient and procedure confirmed by team. 10:16:16 ECG and BP/O2 sat monitors applied to patient. 10:22:11 Vital chart was started 10:22:20 0.9% NaCl 100 ml/hr I.V. was administered by Gali Salamanca RN; used for procedure; Verbal order read back and verified. 10:22:27 Oxygen 2 l/min etCO2 Nasal cannula was administered by Gali Salamanca RN; used for procedure; Verbal order read back and verified. 10:22:31 Lidocaine 2% 20ml vial added to field was administered by Jeffery Juarez MD; for local anesthetic; Verbal order read back and verified. 10:22:38 Heparin Flush Bag (1000units/500ml NS) 2 bags added to field was administered by Jeffery Juarez MD; used for procedure; Verbal order read back and verified. 10:22:43 Baseline sample Acquired. 10:22:47 Rhythm: sinus rhythm 10:22:48 Full Disclosure recording started 10:22:52 H&P Date Dictated: 05/22/2019 Within 30 days and on chart., H&P Addendum completed by physician on day of procedure. (MUST COMPLETE FOR ALL OUTPATIENTS). 10:22:53 Pre-procedure instructions explained to patient. 10:22:54 Pre-op teaching completed and patient verbalized understanding. 10:22:55 Family in patients room. 10:23:02 Is the patient allergic to Iodine/contrast media? No. 10:23:03 Was the patient premedicated? Yes 10:23:22 Is patient on blood thinner?No 10:23:28 Patient diabetic? Yes. 10:23:29 If diabetic: On Metformin? No 10:23:32 Previous problem with sedation/anesthesia? No ? 10:23:33 Snore? Yes 10:23:34 Sleep apnea? No 10:23:35 Deviated septum? No 10:23:36 Opens mouth fully? Yes 10:23:36 Sticks out tongue? Yes 10:23:38 Airway obstruction? No ? 10:24:36 Dentures? No ? 10:24:39 Pre procedure: right dorsailis pedis pulse 1+ Palpable, but thready & weak; easily obliterated 10:24:40 Pre procedure: left dorsailis pedis pulse 1+ Palpable, but thready & weak; easily obliterated 10:24:42 Patient pain scale 0/10 ?. 10:24:47 IV patent on arrival in left forearm with 0.9% NaCl at [facility]. 10:24:55 Right groin area was prepped with chlora-prep and draped in sterile fashion 10:24:56 Alarms reviewed by R. N. 10:24:56 Sharps counted by scrub and verified by R.N. 10:24:59 Physician arrived 10:25:00 --------ALL STOP TIME OUT------ 10:25:00 Final Timeout: patient, procedure, and site verified with staff and physician. All members of the team are in agreement. 10:25:02 Right groin site verified by team. 10:25:05 Fire Safety Assessment: A--An alcohol-based skin anteseptic being used preoperatively., C--Open oxygen or nitrous oxide is being used., D--An ESU, laser, or fiber-optic light is being used. 10:25:09 Physical assessment completed. ASA score P 2 - A patient with mild systemic disease as per Jeffery Juarez MD. 10:25:12 Sedation plan: IV Moderate Sedation Medication:Versed, Fentanyl 10:25:18 Use device set Femoral Dx 10:25:19 ACIST Syringe (63403) opened to sterile field. 10:25:19 Bag Decanter (2002S) opened to sterile field. 10:25:20 Medline Cath Pack ([id number]) opened to sterile field. 10:25:21 ACIST Hand Control (49405) opened to sterile field. 10:25:22 ACIST Manifold (81785) opened to sterile field. 10:25:22 DIAGNOSTIC Multipack 5Fr catheter set (TV2302) opened to sterile field. 10:25:22 Tegaderm 4 x 4 (1626W) opened to sterile field. 10:25:23 SHEATH 5FR Harwick (PIK084) opened to sterile field. 10:25:24 EMERALD Guide Wire (277-009) opened to sterile field. 10:26:38 Versed 2 mg I.V. was administered by Gali Salamanca RN; for sedation; Verbal order read back and verified. 10::42 Fentanyl 50 mcg I.V. was administered by Gali Salamanca RN; for sedation; Verbal order read back and verified. 10:31:00 Versed 2 mg I.V. was administered by Gali Salamanca RN; for sedation; Verbal order read back and verified. 10:31:23 Procedure started. 10:31:27 Local anesthetic to right femoral artery with Lidocaine 2% by Jeffery Juarez MD.INITIAL ACCESS ONLY 10:31:36 Fentanyl 50 mcg I.V. was administered by Gali Salamanca RN; for sedation; Verbal order read back and verified. 10:32:32 Zero performed for pressure channel P1 10:34:23 A 5 Fr sheath was inserted into the Right Femoral artery 10:35:24 A MULTIPACK Pigtail 5 Fr catheter was advanced over the wire and used for LV Angiography. 10:36:01 LV hemodynamics recorded. 10:36:02 LV gram done using GREENBERG 10:36:05 Injector settings: Ml/sec: 5, Volume: 15, 10:36:12 EF : 70 % 10:36:36 Catheter removed. 10:36:40 A MULTIPACK JL 4.0 5Fr catheter was advanced over the wire and used for Left Coronary Angiography. 10:37:05 LCA angiography performed. 10:37:08 Injector settings: Ml/sec: 3, Volume: 6, 10:38:01 Catheter removed. 10:38:09 A MULTIPACK 3DRC 5Fr catheter was advanced over the wire and used for Multi-vessel Angiography. 10:41:13 SHANNON angiography performed. 10:41:27 RCA angiography performed. 10:41:29 Injector settings: Ml/sec: 3, Volume: 6, 10:41:50 Catheter removed. 10:42:03 SHEATH 6FR Harwick (IBM284) opened to sterile field. 10:42:43 INFLATOR Merit Prakashpak (ZI6682) opened to sterile field. 10:42:44 Hopkins Verrata Plus pressure wire (25281Z) opened to sterile field. 10:43:23 A DIAGNOSTIC AR2 MOD 5 Fr catheter ([id number]) was advanced over the wire and used for SVG Angiography. 10:43:33 SVG to Circ occluded. 10:43:36 Catheter removed. 10:43:37 Proceeding to intervention. 10:44:00 ACCDominant side:Right 10:44:41 Sheath upsized to a 6 Fr Short. 10:44:45 ACC Pre-intervention ZACH Flow is 3. 10:45:02 GUIDE 6FR HS II catheter ([id number]) opened to sterile field. 10:45:16 6 Fr hs 2 guide catheter was inserted over the wire 10:45:26 FFR/IFR wire advanced. 10:45:29 Baseline FFR 1. 10:47:19 Heparin Bolus 4000 units I.V. was administered by Gali Salamanca RN; for anticoagulation; verified with Dr. Juarez Verbal order read back and verified. 10:47:24 Wire advanced across lesion. 10:47:32 Integrilin (Bolus 2mg/ml) 6.8 ml I.V. was administered by Gali Salamanca RN; for antiplatelet therapy; Verbal order read back and verified. 10:47:43 Integrilin (Bolus 2mg/ml) 3.2 ml wasted was administered by Gali Salamanca RN; for antiplatelet therapy; Verbal order read back and verified. 10:47:54 Brilinta 180 mg P.O. was administered by Gali Salamanca RN; for antiplatelet therapy; Verbal order read back and verified. 10:48:07 dRCA lesion measured at 0.77 with IFR 10:48:39 Pre PCI Site: [place] dRCA has 80% stenosis. 10:49:21 GUIDE 6FR XBLAD 3.5 catheter ([id number]) opened to sterile field. 10:50:06 Place stent Inflation Number: 1 A NEELA RX 2.5 x 12 stent ([id number]) was prepped and advanced across the Dist RCA 80. The stent was deployed at 13 ELKIN for 0:10 (min:sec) 0. 10:50:12 Inflation number: 2 The stent balloon was then re-inflated across the Dist RCA 0 to 21 ELKIN for 0:10 (min:sec) . 10:50:20 Stent catheter was removed intact over wire. 10:50:21 Wire removed. 10:50:21 Guide catheter removed. 10:50:28 ACC Post-intervention ZACH Flow is 3. 10:50:36 6 Fr xblad 3.5 guide catheter was inserted over the wire 10:50:42 minamo wire advanced. 10:51:31 Wire advanced across lesion. 10:53:45 ACC Pre-intervention ZACH Flow is 3. 10:53:53 Pre PCI Site: [place] Diag1 has 95% stenosis. 10:55:07 Inflation number: 1 The stent balloon was then re-inflated across the 1st Diag 95 to 11 ELKIN for 0:10 (min:sec) 0. 10:55:56 ACT drawn and resulted at 246 seconds. (normal therapeutic range 180-240 seconds). 10:55:57 Place stent Inflation Number: 2 A NEELA RX 2.5 x 08 stent ([id number]) was prepped and advanced across the 1st Diag 95. The stent was deployed at 13 ELKIN for 0:10 (min:sec) 0. 10:56:46 Stent catheter was removed intact over wire. 10:56:46 Wire removed. 10:56:47 Guide catheter removed. 10:56:57 Sheath removed intact; hemostasis achieved with Exoseal to the Right Femoral artery. 10:57:13 Procedure ended.(Physican Out) 10:57:25 Fluoroscopy time 07.20 minutes. 10:57:29 Flurop Dose total: 1145 10:57:29 Fluoroscopy dose: 1145 mGy 10:57:38 Dose Area Product 74364 mGy/cm. 10:57:44 Contrast amount:Isovue 300 148ml. 10:57:48 Maximum allowable dose exceeded? No. 10:57:49 Sharps counted by scrub and verified by R.N. 10:58:03 Insertion/operative site no bleeding no hematoma. 10:58:06 Post-op/insertion site Right Femoral artery dressed using a 4 x 4 and Tegaderm. 10:58:10 Post right femoral artery:stable 10:58:51 Post Procedure Pulses reassessed and unchanged 10:58:54 Post procedure rhythm: unchanged. 10:58:56 Estimated blood loss: 5 ml 10:58:58 Post procedure instruction explained to patient.Patient verbalizes understanding. 10:58:58 Patient needs reinforcement of post procedure teaching. 10:59:41 Procedure type changed to Cath procedure, Diagnostic procedure, LHC, LHC w/Coronaries w/Grafts, FFR/IVUS, FFR Initial, Sedation Charges, Moderate Sedation up to 30 minutes, PCI procedure, Coronary Stent, Coronary Stent Initial x2 10:59:42 Procedure and supply charges have been captured, reviewed, submitted and are correct. 10:59:53 Procedure Complication : No complications 10:59:55 Vital chart was stopped 10:59:59 [facility] Findings: MVD- PCI performed (see procedure note) 11:00:01 Operative report dictated upon procedure completion. 11:00:01 See physician's report for complete and final results. 11:00:05 Report given to Pre/Post Procedure Room. 11:00:08 Patient transfered to Pre/Post Procedure Room with Stretcher. 11:00:10 Procedure ended. 11:00:10 Full Disclosure recording stopped 11:00:20 ACC-PCI Only Patient was given prescriptions, or instructed by Jeffery Juarez MD to start/continue the following medications upon discharge: Brilinta 11:00:22 End room use (Document Last) 11:02:02 EXOSEAL 6Fr (EX600) opened to sterile field. Intervention Summary Intervention Notes Time ActionType Lesion and Equipment Used Action# Pressure Duration Attributes 10:50:06 Place stent Dist RCA NEELA RX 2.5 x 1 13 00:10 12 stent ([id number]) 10:50:12 Reinflate Dist RCA NEELA RX 2.5 x 2 21 00:10 stent 12 stent balloon ([id number]) 10:55:07 Reinflate 1st Diag NEELA RX 2.5 x 1 11 00:10 stent 12 stent balloon ([id number]) 10:55:57 Place stent 1st Diag NEELA RX 2.5 x 2 13 00:10 08 stent ([id number]) Device Usage Item Name Manufacture Quantity Catalog Hospital Part Current Minimal Lot# / Number Charge Number Stock Stock Serial# Code ACIST Syringe Acist 1 15109 569928 392163 269973 20 (55365) TwentyFeet Bag Decanter Microtek 1 696592 15574 425124 5 () Medical Inc. Medline Cath Medline 1 [id number] 496472 11420 350758 5 Pack ([id number]) ACIST Hand Acist 1 21670 190020 314066 501832 5 Control Medical (78538) Systems Inc ACIST Manifold Acist 1 15865 989156 750696 484181 5 (44117) Medical Systems Inc DIAGNOSTIC Cardinal 1 LW8694 728417 98448 035144 30 Multipack 5Fr Health catheter set ([id number]) Tegaderm 4 x 4 3M 1 1626W 555855 310631 455595 5 (1626W) SHEATH 5FR Terumo 1 VQN943 435215 454505 702405 5 Harwick (YXH626) EMERALD Guide Cardinal 1 502-455 410463 313085 869415 5 Wire (502-455) Health MULTIPACK Cardinal 1 502042 5 Pigtail 5 Fr Health catheter MULTIPACK JL Cardinal 1 968629 5 4.0 5Fr Health catheter MULTIPACK 3DRC Cardinal 1 227132 5 5Fr catheter Health SHEATH 6FR Terumo 1 IMO679 364501 605766 578449 40 Harwick (RGV921) INFLATOR Merit Merit 1 JU3763 762689 517599 699961 15 Oxigene (LE8865) Hopkins Hopkins 1 55337N 479090 292053617 778951 5 Verrata Plus pressure wire (89275L) DIAGNOSTIC AR2 Cardinal 1 727303S 963830 384839 522256 20 MOD 5 Fr Health catheter (632206W) GUIDE 6FR HS Medtronic 1 [id number] 892992 80889 597062 1 II catheter ([id number]) GUIDE 6FR Cardinal 1 [id number] 657776 364860 863824 10 XBLAD 3.5 Health catheter ([id number]) NEELA RX 2.5 x Medtronic 1 [id number] 683742 6604798 581350 5 [id number] 12 stent ([id number]) NEELA RX 2.5 x Medtronic 1 [id number] 176878 7919166 523839 5 [id number] 08 stent ([id number]) EXOSEAL 6Fr Cardinal 1 EX600 676644 877820 301781 10 (EX600) Health Signature Audit Henry Stage Time Signature Unsigned Intra-Procedure 05/22/2019 Geno Coker 11:03:13 AM RT(R) Intra-Procedure 05/22/2019 Gali Salamanca 11:03:46 AM RN Intra-Procedure 05/22/2019 Jeffery Juarez 11:04:51 AM MD Signatures Performing Physician : Signature : Jeffery Juarez MD Date : Time : Monitor : Geno Coker RT Signature : Date : Time : Nurse : Gali Salamanca RN Signature : Date : Time : [place] [address] [place] [address]
[~2019-05-22 07:07] MED LIST changes: +BAYER ASPIRIN325 MG PO; +GLIMEPIRIDE2 MG PO
[2019-05-22] MEDS ORDERED: VIBERZI PO (07:51)
[2019-05-22 08:01] VITALS: BP 201/69; Ht 157.5 cm; Wt 77.3 kg
[2019-05-22 08:24] LABS: ANION GAP 16.4 mmol/L (8-16); CALCIUM 8.5 mg/dL (8.5-10.1); CARBON DIOXIDE 25.8 mmol/L (21.0-32.0); CHOL - HDL RATIO 3.7 ratio (2.3-4.1); CREATININE - SERUM 1.3 mg/dL (0.6-1.3); LDL-HDL RATIO 2.3 ratio (1.5-3.5); POTASSIUM - SERUM 3.2 mmol/L (3.5-5.1)
[2019-05-22 08:28] LABS: BASOPHILS 0.2 % (0-2); EOSINOPHILS 1.8 % (0-7); HEMATOCRIT 36.7 % (36.0-48.0); HEMOGLOBIN 12.3 g/dL (12-16); IMMATURE GRANULOCYTES 0.1 % (0-5); LYMPHOCYTES 20.6 % (15-50); MCH 30.8 pg (26.0-34.0); MCHC 33.5 g/dL (31.0-37.0); MCV 91.8 fL (80.0-100.0); MONOCYTES 4.9 % (2-11); NEUTROPHILS 72.4 % (40-80); PLATELET COUNT 237 10x3/uL (130-400); RDW 13.8 % (11.5-14.5); WBC 9.3 10x3/uL (4.8-10.8)
--- NOTE | 2019-05-22 11:15 | NUR ---
PT RECEIVED VIA STRETCHER FROM EMERGENCY MEDICINE PHYSICIAN ASSISTANT FOR RECOVERY. PT AWAKE BUT DROWSY, DENIES PAIN OR DISCOMFORT. IV PATENT INFUSING VIA ORDERS TO L HAND. PT PLACED ON CARDIAC MONITORS AND O2 AT 1L/NC. HR NSR RATE 67, BP 168/91, RR 9 SAT 96. R GROIN SOFT, 6FR EXOCELE, DRESSING CDI NO BLEEDING OR S/S HEMATOMA NOTED. R LEG PINK AND WARM, PEDAL PULSES PALPABLE. CALL LIGHT IN REACH, DENIES NEEDS AT THIS TIME. CHYNA HUGGER PLACED PER PT REQUEST.
[2019-05-22] MEDS ORDERED: BAYER CHEWABLE81 MG PO ×2 (11:19→11:21)
[2019-05-22] MEDS ORDERED: BRILINTA90 MG PO ×2 (11:19→11:21)
--- NOTE | 2019-05-22 11:45 | NUR ---
PT RESTING COMFORABLY, R GROIN SOFT, DRESSING CDI NO BLEEDING OR S/S HEMATOMA NOTED. PEDAL PULSES PALPABLE. PT DENIES PAIN OR NAUSEA. DT COLA GIVEN. PT'S FRIEND CALLED PER PT REQUEST AND INFORMED HER OF PT'S DISCHARGE TIME. CALL LIGHT IN REACH. VSS.
--- NOTE | 2019-05-22 12:35 | NUR ---
R GROIN SOFT, DRESSING REMAINS CDI NO BLEEDING OR S/S HEMATOMA NOTED. PEDAL PULSES PALPABLE. PT PLACED ON BEDPAN, VOIDED 350CC CLEAR YELLOW URINE W/O DIFFICULITY. REPOSITINED FOR COMFORT. HR 61, BP 181/48, SAT 99. CALL LIGHT IN REACH, DENIES OTHER NEEDS.
--- NOTE | 2019-05-22 13:05 | NUR ---
PT RESTING COMFORTABLY, DENIES PAIN OR DISCOMFORT. IV PATENT INFUSING VIA ORDERS. HR NSR RATE 60, BP 182/56, SAT 99. R GROIN SOFT, DRESSING REMAINS CDI NO BLEEDING OR S/S HEMATOMA NOTED. CALL LIGHT IN REACH
--- NOTE | 2019-05-22 13:35 | NUR ---
PT RESTING W EYES CLOSED. DENIES PAIN OR DISCOMFORT. R GROIN SOFT, DRESSING REMAINS CDI NO BLEEDING OR S/S HEMATOMA NOTED. PEDAL PULSES PALPABLE. VSS. CALL LIGHT IN REACH, AT BEDSIDE
--- NOTE | 2019-05-22 14:00 | NUR ---
R GROIN SOFT, NO BLEEDING OR SWELLING NOTED. PEDAL PULSES PALPABLE. VSS. O2 REMOVED, SAT 98 ON ROOM AIR. HOB ELEVATED SLIGHTLY, SANDWICH TRAY SERVED. CALL LIGHT IN REACH.
--- NOTE | 2019-05-22 14:39 | NUR ---
BP 200/[address] BURGER NOTIFIED, ORDERS RECEIVED FOR CLONIDINE 0.2MG PO ONE TIME AND OK TO GO AHEAD AND DISCHARGE. R GROIN REMAINS SOFT, NO S/S HEMATOMA NOTED.
--- NOTE | 2019-05-22 14:44 | NUR ---
CLONIDINE GIVEN. WILL MONITOR BP.
--- NOTE | 2019-05-22 15:06 | NUR ---
BP 192/60. IV REMOVED W CATH INTACT, MONITORS REMOVED AND PT UP TO DRESS FOR DISCHARGE.
--- NOTE | 2019-05-22 15:09 | NUR ---
PT AMBULATED TO BR, VOIDING W/O DIFFICULITY. 1510 PT DISCHARGED VIA WC TO FRIEND WAITING IN PRIVATE VEHICLE. PT HAD ALL BELONGINGS AND DISCHARGE PAPERWORK.
== END 2019-05-22 15:10 | disposition home or self-care (01) ==
LOC: D.CATH 07:07
PROVIDERS: ATTEND Internal Medicine Interventional Cardiology
DX: I25.110 Atherosclerotic heart disease of native coronary artery with unstable angina pectoris (principal); E11.9 Type 2 diabetes mellitus without complications; E78.5 Hyperlipidemia, unspecified; I10 Essential (primary) hypertension; R06.09 Other forms of dyspnea; E73.9 Lactose intolerance, unspecified; Z79.84 Long term (current) use of oral hypoglycemic drugs
CPT/HCPCS: 92937; 93458; 93571; C9600 ×2

== ENCOUNTER 2019-09-15 06:26 | Day surgery (SDC) | payer OTHER ==
[~2019-09-15] VITALS: Ht 157.5 cm; Wt 75.5 kg
[~2019-09-15 06:26] MED LIST changes: +BAYER CHEWABLE81 MG PO; +VIBERZI PO
[2019-09-15 06:55] LABS: HEMATOCRIT 38.4 % (36.0-48.0); HEMOGLOBIN 12.6 g/dL (12-16); MCH 30.6 pg (26.0-34.0); MCHC 32.8 g/dL (31.0-37.0); MCV 93.2 fL (80.0-100.0); MEAN PLATELET VOLUME 10.3 fL (7.4-10.4); RBC 4.12 10x6/uL (4.00-5.40); RDW 14.3 % (11.5-14.5)
[2019-09-15] MEDS ORDERED: MOBIC7.5 MG PO (07:25)
[2019-09-15] MEDS ORDERED: GLUCOTROL 5 MG T5 MG PO (07:25)
[2019-09-15] MEDS ORDERED: CINNAMON500 MG PO (07:29)
[2019-09-15] MEDS ORDERED: CALCIUM 600 +1 EAC3 (07:30)
[2019-09-15] MEDS ORDERED: ZINC50 MG PO (07:30)
[2019-09-15 07:31] LABS: ANION GAP 15.6 mmol/L (8-16); CALCIUM 9.3 mg/dL (8.5-10.1); CARBON DIOXIDE 27.4 mmol/L (21.0-32.0)
[2019-09-15] MEDS ORDERED: ASCORBIC ACID500 MG PO (07:31)
[2019-09-15 07:49] VITALS: BP 192/67; Ht 157.5 cm; Wt 75.5 kg
--- NOTE | 2019-09-15 11:54 | NUR ---
1140 IV DC'D. CATHETER TIP INTACT. PRESSURE HELD UNTIL BLEEDING CEASED. BANDAID APPLIED. DISCHARGE INSTRUCTIONS COVERED WITH PATIENT AND SHE IS AWARE TO HOLD MELOXICAM FOR 10-14 DAYS.
--- NOTE | 2019-09-15 16:30 | OP ---
PATIENT NAME: KEISHA MORRISON MEDICAL RECORD: [id number] :49 LOCATION:D[facility] ADMISSION DATE: SURGEON: CESIA GREGORIO MD DATE OF OPERATION: 09/15/2019 PREOPERATIVE DIAGNOSIS: Positive Cologuard times 2. POSTOPERATIVE DIAGNOSES: Positive Cologuard times 2 with a 2.5 cm sessile carpeting polyp of the cecum, which could account for the patient's positive Cologuard. PROCEDURES: 1. Total colonoscopy to cecum. 2. Hot biopsy forceps polypectomies times 1. ANESTHESIA: IV sedation. COMPLICATIONS: None. The risks, possible complications and alternatives to the procedure were explained to the patient. She elects to proceed. Discussion specifically included, but was not limited to, bleeding requiring emergency reoperation, endoscopic perforation. Due to positive Cologuard test and possibility that the patient could harbor a malignancy within her large bowel, I felt that this was an urgent procedure and that the risks of developing the coronavirus were less than waiting. Therefore, we are going to proceed with the endoscopic procedure. ENDOSCOPIC COURSE: The patient was conveyed to endoscopy suite electively on 09/15/2019. IV sedation was induced by the anesthesia staff. The patient was placed in the [place] position. A digital rectal examination was performed. A colonoscope was inserted through the anus. It was easily advanced to the cecum. The prep was inadequate. I slowly withdrew the endoscope. I irrigated and aspirated extensively. A carpeting polyp was noted within the cecum. This was removed utilizing the hot biopsy forceps polypectomy technique. I continued to withdraw the endoscope. I dragged the folds. I irrigated and aspirated extensively. I utilized normal imaging as well as narrow band imaging. A retroflexed view was obtained in the rectum. I then unretroflexed the scope and removed it under direct vision. I will see the patient in my office in 2-3 weeks. I am going to plan for her next surveillance colonoscopy to occur in 1 year. As the patient is going to be at risk for post-polypectomy syndrome, she is going to be dismissed home on Plavix. TRANSINT:[id number] Voice Confirmation ID: [id number] DOCUMENT ID: [id number] OPERATIVE REPORT [id number] KEISHA MORRISON ROBERT MD at 1630 CC: KELLEE JIMENEZ MD and EVELIA BURGER [phone] DICTATION DATE: 09/15/19 1100 FIELD COORDINATOR: 09/15/19 1249 [facility] [place] 09/15/19 [place] [address] [place] [address]
--- NOTE | 2019-09-15 16:30 | HP ---
PATIENT: KEISHA MORRISON MEDICAL RECORD: [id number] ACCOUNT: [id number] LOCATION:DJerrySAHIL : 49 ADMISSION DATE: 09/15/19 PCP: KELLEE JIMENEZ MD HISTORY AND PHYSICAL EXAMINATION PRINCIPAL DIAGNOSIS: Positive Cologuard tests times 2. HISTORY OF PRESENT ILLNESS: The patient is having some diffuse abdominal pain, which has improved and actually has resolved with Metamucil that Dr. Jimenez has prescribed. She has noted no rectal bleeding. The patient has been off her Brilinta for about a month. SOCIAL HISTORY: Nonsmoker. ALLERGIES: EFFIENT, JANUVIA, AND PLAVIX. PAST MEDICAL AND SURGICAL HISTORY: CABG times 3, history of coronary artery stents times 21, coronary artery disease, peripheral vascular disease, hypertension, CHF, non-insulin dependent diabetes mellitus, and chronic renal disease, not requiring dialysis. REVIEW OF SYSTEMS: Negative for CVA or seizures. Negative for thyroid problems or hepatitis. PHYSICAL EXAMINATION: GENERAL: The patient does not appear acutely ill. She does not appear chronically ill. VITAL SIGNS: Reviewed. EARS: External ears appear normal. EYES: Extraocular movements are intact. NECK: Trachea is midline. CHEST: No intercostal retractions. PULMONARY: Nonlabored and no stridor. IMPRESSION: Positive Cologuard test times 2. PLAN: Colonoscopy. TRANSINT:[id number] Voice Confirmation ID: [id number] DOCUMENT ID: [id number] CESIA GREGORIO MD at 1630 CC: KELLEE JIMENEZ MD and EVELIA BURGER [phone] DICTATION DATE: 09/15/19 1008 DISPATCH MACHINE RUNNER: 09/15/[address] [facility] [place] 09/15/19 [facility] [address] [place] [address]
== END 2019-09-15 11:56 | disposition home or self-care (01) ==
LOC: D.OPS 06:26
PROVIDERS: Anesthesiology; ATTEND Surgery
DX: R19.5 Other fecal abnormalities (principal); D12.0 Benign neoplasm of cecum; E11.42 Type 2 diabetes mellitus with diabetic polyneuropathy; Z79.84 Long term (current) use of oral hypoglycemic drugs; E78.00 Pure hypercholesterolemia, unspecified; E78.5 Hyperlipidemia, unspecified; I11.9 Hypertensive heart disease without heart failure